=== PATIENT | female | born 1995 | race Two or more races ===

== ENCOUNTER 2021-09-11 09:15 | Emergency (ER) | payer OTHER ==
[~2021-09-11] VITALS: Ht 157.5 cm; Wt 53.1 kg
[2021-09-11] MEDS ORDERED: ACETAMINOPHEN 325 MG TAB PO ONE (09:45)
[2021-09-11 10:14] VITALS: BP 123/76
[2021-09-11] MEDS ORDERED: SODIUM CHLORIDE 0.9% 1,000 ML IV ONE (11:00)
[2021-09-11] MEDS ORDERED: ONDANSETRON ODT 4 MG TAB PO ONE (11:00)
[2021-09-11] MEDS ORDERED: ACET-1158 PO (11:35)
[2021-09-11] MEDS ORDERED: AMOX-277 PO (11:35)
[2021-09-11] MEDS ORDERED: OSEL75CA5 PO (11:35)
[2021-09-11] MEDS ORDERED: ONDA-144 PO (11:35)
== END 2021-09-11 12:38 | disposition home or self-care (01) ==
LOC: ER 09:15
DX: J10.1 Influenza due to other identified influenza virus with other respiratory manifestations (principal); J06.9 Acute upper respiratory infection, unspecified; Z20.822 Contact with and (suspected) exposure to COVID-19
CPT/HCPCS: 36415; 71045; 87426; 87804; 99284; J7030; Q0162